=== PATIENT | female | born 1965 | race Caucasian/White ===

== ENCOUNTER 2017-04-11 15:55 | Observation (INO) ==
[2017-04-11] MEDS ORDERED: *HR* FentaNYL (PF) 100 MCG/2 ML VIAL IVP ONE (18:28)
[2017-04-11] MEDS ORDERED: *HR* HYDROmorphone (PF) 1 MG/ML SYRINGE IVP ONE (18:28)
[2017-04-11] MEDS ORDERED: 0.9 % Sodium Chloride 1,000 ML IVC ONE (18:28)
--- NOTE | 2017-04-11 18:28 | Emergency Department Note ---
Disposition Clinical Impression: Abdominal pain Qualifiers: Abdominal location: periumbilical Qualified Code(s): R10.33 - Periumbilical pain Umbilical hernia Qualifiers: Obstruction and gangrene presence: without obstruction or gangrene Qualified Code(s): K42.9 - Umbilical hernia without obstruction or gangrene Disposition: Still a Patient Condition: Good Abdominal Pain HPI - General Chief Complaint: ED Abdominal Pain Stated Complaint: Hernia Time Seen by Provider: 04/11/17 18:12 Source: patient Mode of arrival: ambulatory Limitations: no limitations Nursing Notes Reviewed: Yes Vital Signs Reviewed: Yes - History of Present Illness HPI Narrative: 51-year-old female presents with abdominal pain. She has a known umbilical hernia that typically is reducible. She states about 6 days ago the hernia popped out she was unable to present back in. Gradually over these past few days it has grown in size. She continues to pass flatus and had a normal bowel movement earlier at 1130. She denies any nausea vomiting. No fever or recent illness. No other complaints. History of cholecystectomy and hysterectomy. Denies any urinary complaints. On my valuation she has a umbilical hernia roughly 3 cm in size. It is tender to the touch. There is bowel sounds auscultated. I attempted to reduce with light pressure but due to the pain she would Valsalva. Will attempt again and if not possible IV sedation. She will be signed out to nighttime physicians Dr. Smalls and Dr. Nagel for further evaluation and management. Fentanyl for pain and IV fluids. Basic labs ordered. Pt Subjective Complaint: abdominal pain Pain Scale: 3 - Related Data Home Medications Medication Instructions Recorded Confirmed Levothyroxine [Synthroid] 150 mcg PO QAM 04/06/16 04/11/17 Loratadine [Claritin] 10 mg PO DAILY PRN 04/06/16 04/11/17 Cholecalciferol (Vitamin D3) 5,000 unit PO DAILY 04/11/17 04/11/17 [Vitamin D3] Cyanocobalamin (Vitamin B-12) 1,000 mcg SL DAILY 04/11/17 04/11/17 [Vitamin B-12] Allergies Allergy/AdvReac Type Severity Reaction Status Date / Time iodine Allergy Anaphylaxis Verified 04/06/16 15:46 All systems ED: reviewed and negative except as stated. Review of Systems: As Per HPI Constitutional: Denies: fever, chills ENT ED: Denies: throat pain, congestion Cardiovascular: Denies: chest pain Respiratory: Denies: cough, dyspnea Gastrointestinal: Reports: abdominal pain. Denies: nausea, vomiting, diarrhea Genitourinary: Denies: urgency, dysuria Musculoskeletal: Denies: back pain, neck pain Integumentary: Denies: rash, abrasion Neurological: Denies: headache Abdominal Pain PMH - Past Medical History Medical history: Reports: DVT, other Female Surgical History: Reports: cholecystectomy Psychiatric history: Reports: no psych history - Social History Smoking status: Current every day smoker Alcohol use: Reports: rarely Drug use: Reports: none Physical Exam - General Limitations: no limitations General appearance: alert, in no apparent distress - Head Head exam: atraumatic, normocephalic, normal inspection - Eye Eye exam: Present: normal appearance, PERRL, EOMI - ENT ENT exam: normal exam, normal oropharynx, mucous membranes moist - Neck Neck exam: Present: normal inspection, full ROM, trachea midline - Chest Chest inspection: Present: normal inspection, symmetric chest wall rise - Respiratory Respiratory exam: Present: normal lung sounds bilaterally - Cardiovascular Cardiovascular exam: Present: regular rate, normal rhythm, normal heart sounds - Abdominal Exam Abdominal exam: Present: soft, tenderness, hernia (umbilical, cannot reduce). Absent: Non-Tender, distention, guarding, rebound, rigidity, Rovsing's sign, tenderness at McBurney's Point - Neurological Exam Neurological exam: Present: alert, oriented X3 - Skin Skin exam: Present: warm, dry, intact, normal color. Absent: rash, cyanosis, diaphoresis Course Vital Signs Temperature 98.3 F 04/11/17 16:07 Pulse Rate 84 04/11/17 16:07 Respiratory Rate 16 04/11/17 16:07 Blood Pressure 130/80 04/11/17 16:07 O2 Sat by Pulse Oximetry 97 04/11/17 16:07 Temperature 97.0 F L 04/12/17 03:32 Pulse Rate 62 04/12/17 03:32 Respiratory Rate 16 04/12/17 03:32 Blood Pressure 125/80 04/12/17 03:32 O2 Sat by Pulse Oximetry 94 04/12/17 03:32 Oxygen Delivery Oxygen Delivery Room Air Abdominal Pain - MDM Narrative Medical decision making narrative: Patient was discussed with my attending physician who agrees with ED management and final disposition. They independently evaluated the patient. Please refer to their attestation to this encounter for additional information. This note was generated by [employer] voice recognition software and as a result grammatical or spelling errors may occur using this program. - Medical Records Medical records reviewed: Yes I reviewed the patient's medical records. - Lab Data Lab results reviewed: Yes I reviewed the patient's lab results. Result diagrams: 04/11/17 18:44 04/11/17 18:44 Lab Results 04/11/17 04/11/17 04/11/17 Range/Units 18:44 18:44 18:44 WBC 6.8 (4.3-11.1) K/mcL RBC 4.23 (3.82-4.97) M/mcL Hgb 12.7 (11.5-15.4) g/dL Hct 38.8 (35.3-44.9) % MCV 91.7 (83.0-100.0) fL MCH 30.0 (28.0-33.3) pg MCHC 32.7 (31.6-35.5) g/dL RDW 13.5 (11.5-14.5) % Plt Count 200 (140-400) K/mcL MPV 10.8 (9.4-12.4) fL Immature Gran % 0.3 (0-4) % Seg Neutrophils % 55.6 % Lymphocytes % 30.4 % Monocytes % 7.2 % Eosinophils % 5.2 % Basophils % 1.3 % Neutrophils # 3.8 (1.6-8.9) K/mcL Lymphocytes # 2.1 (0.6-4.6) K/mcL Monocytes # 0.5 (0.0-1.3) K/mcL Eosinophils # 0.4 (0.0-0.6) K/mcL Basophils # 0.1 (0.0-0.2) K/mcL Immature Plt Fraction 5.9 (1.1-6.1) % Sodium 139 (136-145) mEq/L Potassium 3.6 (3.5-5.1) mEq/L Chloride 109 H (98-107) mEq/L Carbon Dioxide 31 H (23-29) mEq/L BUN 6 (6-20) mg/dL Creatinine 0.81 (0.60-1.20) mg/dL Est GFR ( Amer) > 60 (> 60) Est GFR (Non-Af Amer) > 60 (> 60) BUN/Creatinine Ratio 7 (6-26) Glucose 93 (70-105) mg/dL Calculated Osmolality 285 (280-300) Lactic Acid 1.0 (0.5-2.2) mmol/L Calcium 9.1 (8.6-10.3) mg/dL S.B.A.R. - S.B.A.R. Situation: Demographics, MOA Background: Presenting Complaint, Relevant PMH, Meds, & Allergies Assessment: Vital Signs, Course and respsone to treatment, Exam Concerns, Patient/Family Expectation, Pertinant Lab Results, Outstanding Labs Recommendation: Barrier(s) to disposition, Recommendation based on pending studies, treatments, or consults S.B.A.R. Report Given to: Dr. Smalls and Dr. Robe Freedman Repor Time: 19:09 Attestation Statement - Attestation Attestation: I, Romie Cottrell DO, examined this patient [id number] and my medical decision-making was reviewed with Franck Pineda DO , Resident Physician. I agree with the documented findings, disposition and treatment plan as described except to the extent set forth below. Please see my progress notes for details. Patient presents to emergency room with abdominal pain. She has a known periumbilical hernia. She is very easily reduces it without any complication. Patient has not been able to reduce it last for 5 days. She denies any changes in her bowel habit. She just has pain at the umbilicus. Patient just incredibly in the bed. Nail reduction was not able to be completed with our narcotic pain medication at this time. Patient is otherwise stable. Screening labs and IV access fluids and pain medication to be provided at this time. Patient will be signed out to the nighttime physician. See detailed documentation of physical exam, medical intervention, medical decision making, disposition and sign out in the resident physicians
[2017-04-11 18:51] LABS: Basophils # 0.1 K/mcL (0.0-0.2); Basophils % 1.3 %; Eosinophils # 0.4 K/mcL (0.0-0.6); Eosinophils % 5.2 %; Hematocrit 38.8 % (35.3-44.9); Hemoglobin 12.7 g/dL (11.5-15.4); Immature Granulocytes % 0.3 % (0-4); Immature Platelets 5.9 % (1.1-6.1); Lymphocytes # 2.1 K/mcL (0.6-4.6); Lymphocytes % 30.4 %; Mean Corpuscular HGB Conc 32.7 g/dL (31.6-35.5); Mean Corpuscular Volume 91.7 fL (83.0-100.0); Mean Platelet Volume 10.8 fL (9.4-12.4); Monocytes # 0.5 K/mcL (0.0-1.3); Monocytes % 7.2 %; Neutrophils # 3.8 K/mcL (1.6-8.9); Platelet Count 200 K/mcL (140-400); Red Blood Count 4.23 M/mcL (3.82-4.97); Red Cell Distribution Width 13.5 % (11.5-14.5); Segmented Neutrophils % 55.6 %
[2017-04-11 19:07] LABS: BUN/Creatinine Ratio 7 (6-26); Blood Urea Nitrogen 6 mg/dL (6-20); Calcium 9.1 mg/dL (8.6-10.3); Carbon Dioxide 31 mEq/L (23-29); Chloride 109 mEq/L (98-107); Glucose 93 mg/dL (70-105); Osmolality,Calculated 285 (280-300); Potassium 3.6 mEq/L (3.5-5.1); Sodium 139 mEq/L (136-145); eGFR For African Americans > 60 (> 60); eGFR For Non-African Americans > 60 (> 60)
--- NOTE | 2017-04-11 21:14 | General Surg History&Physical ---
Date of Encounter: 04/11/17 Time of Encounter: 21:03 Assessment and Plan (1) Umbilical hernia Current Visit: Yes Status: Acute 51F with incarcerated, but non strangulated umbilical hernia, non obstructive symptoms. 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 All questions were answered. Qualifiers: Obstruction and gangrene presence: without obstruction or gangrene Qualified Code(s): K42.9 - Umbilical hernia without obstruction or gangrene (2) Hypothyroidism Current Visit: No Status: Acute restart home meds; will plan for thyroid US to evaluate for nodules based upon physical exam The assessment and plan as outlined above was discussed with the patient and/or family members who expressed understanding and agreement. All questions were answered. Qualifiers: Hypothyroidism type: acquired Qualified Code(s): E03.9 - Hypothyroidism, unspecified History of Present Illness Chief complaint: abdominal pain, hernia HPI: Ms. Bear is a 51 year old female with PMH significant for DVTs, OA with a long standing umbilical hernia of about three presents with fullness which she equates to her hernia. It is usually reducible, but she was unable to do so over the past 7 days. Due to the amount of pain she presented to the ED for further evaluation. No reports of obstructive symptoms, no fevers, chills, chest pain nor shortness of breath. Of note, the staff in the ED did attempt reduction, but was unable to do so. Past Med Surg Social Fam HX - Past Medical History Medical history: DVT, other Psychiatric history: no psych history - Past Surgical History Surgical History: cholecystectomy, other (tubal ligation) - Social History Smoking Status: Current every day smoker Smokeless Tobacco Status: No Alcohol use: rarely Drug use: none - Additional Family History Additional family history: non contributory Medications and Allergies Levothyroxine [Synthroid] 150 mcg PO QAM 04/06/16 [History] Loratadine [Claritin] 10 mg PO DAILY PRN 04/06/16 [History] Cholecalciferol (Vitamin D3) [Vitamin D3] 5,000 unit PO DAILY 04/11/17 [History] Cyanocobalamin (Vitamin B-12) [Vitamin B-12] 1,000 mcg SL DAILY 04/11/17 [ History] 3 Allergy/AdvReac Type Severity Reaction Status Date / Time iodine Allergy Anaphylaxis Verified 04/06/16 15:46 Review of Systems All systems PM: A 10-system review of systems was performed and is negative for pertinent findings except as documented above in the HPI. General Surgery Exam Initial Vital Signs Temp Pulse Resp BP Pulse Ox 98.3 F 84 16 130/80 97 04/11/17 16:07 04/11/17 16:07 04/11/17 16:07 04/11/17 16:07 04/11/17 16:07 - General physical appearance well developed, well nourished, no distress - Eyes normal ocular movement - ENT normocephalic - Neck other (possible thyroid nodule on R) - Respiratory normal expansion, normal respiratory effort - Cardiovascular Cardiovascular exam: Present: RRR - Abdomen Abdomen general surgery: Present: soft, tender (along umbilical incision) Hernia: Present: reducible, umbilical - Integumentary Integumentary general surgery: Present: warm and dry - Neurologic Present: CN 2-12 grossly intact - Musculoskeletal Present: other (FROM in UE/LE bilaterally) - Psychiatric Psychiatric general surgery: Present: A&Ox3 Results - Labs 04/11/17 18:44 04/11/17 18:44 Abnormal lab results Chloride 109 mEq/L (98-107) H 04/11/17 18:44 Carbon Dioxide 31 mEq/L (23-29) H 04/11/17 18:44 All other labs normal.
--- NOTE | 2017-04-12 00:28 | Anesthesia Evaluation PreOp ---
Date of Encounter: 04/12/17 Time of Encounter: 00:26 - Past History Planned Operation: Laparoscopic Umbilical Hernia Repair Cardiac History: Denies any Significant Hx Pulmonary History: Smoker (20+ years), Snore LEAD TELLER History: Denies Any Significant HX Other Medical History: Thyroid, Other (H/O DVT's) Anesthesia History: Past Anesthesia, Problems (PONV) Alcohol Use: rarely Drug use: none Medications and Allergies Levothyroxine [Synthroid] 150 mcg PO QAM 04/06/16 [History] Loratadine [Claritin] 10 mg PO DAILY PRN 04/06/16 [History] Cholecalciferol (Vitamin D3) [Vitamin D3] 5,000 unit PO DAILY 04/11/17 [History] Cyanocobalamin (Vitamin B-12) [Vitamin B-12] 1,000 mcg SL DAILY 04/11/17 [ History] 3 Allergy/AdvReac Type Severity Reaction Status Date / Time iodine Allergy Anaphylaxis Verified 04/06/16 15:46 - Meds/Allergy Pre-op Review Medications Reviewed: Yes Allergies Reviewed: Yes Beta Blockers on Current Med List: No Anesthesia Results - Labs 04/11/17 18:44 04/11/17 18:44 Anesthesia Exam Vital Signs/O2 Sat/Glucose, Most Recent Temp Pulse Resp BP Pulse Ox 98.7 F 71 16 124/82 98 04/11/17 22:05 04/11/17 22:05 04/11/17 22:05 04/11/17 22:05 04/11/17 22:05 Blood Glucose* 98 Height: 5'4''/1.63 m Weight: 217 lbs/98.6 kg NPO (# of Hours): 8 Pain Scale: 0 Pain Scale Used: Numeric (1 - 10) - HEENT Pupil (Motor): EOMI Mallampati: II Teeth: Normal (broken left upper molar) Oral Opening: Greater than 3 - LEAD TELLER LOC: Oriented LEAD TELLER Motor: Normal RUE, Normal LUE, Normal RLE, Normal LLE, Normal Face LEAD TELLER Sensory: Normal: RUE, LUE, RLE, LLE, Face - Cardiac Rhythm: Regular Murmur: None - Pulmonary Breath Sounds: bilateral Clear Respiratory Effort: Symmetrical Anesthesia Assess/Plan ASA Score: 2 Modified Dolly Scale for Level of Consciousness: Cooperative, oriented, and tranquil Anesthetic Plan: General Monitoring Plan: Standard Monitors Recovery Plan: PACU
[2017-04-12] MEDS ORDERED: 0.9 % Sodium Chloride 1,000 ML IVC ONE ×2 (00:30→04:05)
[2017-04-12] MEDS ORDERED: Ondansetron 4 MG/2 ML VIAL IVP PRN ×2 (00:30→04:05)
[2017-04-12] MEDS ORDERED: *HR* HYDROmorphone (PF) 1 MG/ML SYRINGE IVP PRN ×2 (00:30→00:49)
[2017-04-12] MEDS ORDERED: *HR* OxyCODONE/APAP 7.5/325 TABLET PO PRN ×2 (00:32→04:05)
[2017-04-12] MEDS ORDERED: Albuterol 2.5 MG/3 ML NEBULIZER ONE (00:35)
[2017-04-12] MEDS ORDERED: *HR* FentaNYL (PF) 100 MCG/2 ML VIAL ONE (00:44)
[2017-04-12] MEDS ORDERED: *HR* Midazolam HCl 2 MG/2 ML VIAL ONE (00:45)
[2017-04-12] MEDS ORDERED: Lidocaine -MPF 2% 2 ML VIAL ONE (00:45)
[2017-04-12] MEDS ORDERED: *HR* Propofol 200 MG/20 ML VIAL IVP ONE (00:45)
[2017-04-12] MEDS ORDERED: *HR* Rocuronium Bromide 50 MG/5 ML VIAL ONE (00:45)
[2017-04-12] MEDS ORDERED: D5% in 0.45% NACL w KCl 20 MEQ/1,000 ML MLS IVC SCH ×2 (00:45→04:05)
[2017-04-12] MEDS ORDERED: *HR* Succinylcholine 200 MG/10 ML VIAL IVP ONE (00:45)
[2017-04-12] MEDS ORDERED: Scopolamine Patch 1.5 MG PATCH.TD72 TD ONE (00:51)
[2017-04-12] MEDS ORDERED: Scopolamine Patch 1.5 MG PATCH.TD72 ONE (01:01)
[2017-04-12] MEDS ORDERED: Dexamethasone 4 MG/ML VIAL ONE (01:27)
[2017-04-12] MEDS ORDERED: Ondansetron 4 MG/2 ML VIAL ONE (01:27)
[2017-04-12] MEDS ORDERED: *HR* Morphine 10 MG/ML VIAL ONE (02:16)
--- NOTE | 2017-04-12 02:30 | Operative Note ---
Date of procedure: 04/12/17 Pre-op diagnosis: incarcerated umbilical hernia Post-op diagnosis: same Procedure: laparoscopic umbilical hernia repair Implants: [id number] mesh Complications: none Anesthesia: GETA Local Anesthetics: 0.5% Sensorcaine HCL SubQ (cc) Surgeon: Jake Jacob Was there an media center assistant present: Yes Twine Reeling Machine Operator: Anh Maloney Estimated blood loss (cc): 10 Specimen: none Condition: stable Disposition: PACU Procedure in Detail: Patient was brought into the operating room suite. Mechanical DVT prophylaxis was placed. The patient underwent smooth induction of anesthesia. Preoperative antibiotics were given. The patient was prepped and draped in the usual fashion in the supine position. A time out was held identifying the correct patient, pathology, physician, and procedure. A 10mm incision was made in the LUQ. Using the visiport we entered into the abdomen. A 5mm port was placed in the Left midabdomen. Using a blunt grasper I was able to identify the umbilical hernia and reduce the contents. It was all intraabdominal fat and some fluid. No evidence of non viable or compromised /ischemic/infarcted tissue. The size of the hernia was approximately 3/25cm in diameter. I inserted a 3rd port in the LLQ to assist in removing the contents of the hernia in its entirety. I then inserted the circular mesh with a vicryl suture in the center of it. Using the karely-stephens closure device I was able to retrieve the mesh by grasping the vicryl suture and bringing it through the abdominal wall, thereby bring the mesh in close proximity to the intraabdominal wall. I was able to see that I did have good hernia coverage of at least 3cm on all sides. I then used the absorbable tacking instrument to insert tacks into the mesh edges approximately 1cm apart. I was content with the mesh placement. I then used the karely stephens device to close the 10mm port site in a figure of 8 fashion using a vicryl suture. Of note, prior to this, I did retrieve the contents of the hernia in the endocatch bag. I then concluded the procedure and ended the laparoscopic portion. I closed all skin incision with interrupted 4-0 vicryl sutures and sealed them with dermabond. The patient tolerated the procedure and was escorted to pacu in stable condition.
--- NOTE | 2017-04-12 03:21 | Anesthesia Evaluation Post Op ---
Date of Encounter: 04/12/17 Time of Encounter: 03:05 - Vital Signs Vital Signs: Vital Signs/O2 Sat, Most Current Temp Pulse Resp BP Pulse Ox 97.0 F L 48 16 110/73 93 04/12/17 03:04 04/12/17 03:14 04/12/17 03:14 04/12/17 03:14 04/12/17 03:14 - Lungs Lungs: Clear Ascult./Percussion - Airway Airway: Non-obstructed - Cardiovascular Regular Rate - Mental Status Mental Status: Asleep with brisk response to light stimulation - Pain Pain Scale: 5 Pain Scale used: Numeric (1 - 10) - Nausea Vomiting Nausea Vomiting: Not Present - Hydration Hydration: NPO, Has not voided - Discharge PostOp Status: Transfer Patient to floor
[2017-04-12] MEDS ORDERED: Loratadine 10 MG TABLET PO PRN (04:05)
[2017-04-12] MEDS: *HR* HYDROmorphone (PF) 1 MG/ML SYRINGE IVP PRN ×2 (04:11→09:03)
--- NOTE | 2017-04-12 05:09 | Emergency Department Note ---
START Narrative - START START: I examined this patient and my medical decision-making was reviewed with the Resident Physician. I agree with the documented findings, disposition and treatment plan as described except to the extent set forth below. I received this patient in sign out. I was unable to reduce the abdominal hernia on examination. Ultimately I contacted general surgery. Lactate was normal. The patient was taken to the operating room with concern for incarcerated hernia. Stable at time of transfer.
[2017-04-12] MEDS ORDERED: *HR* Enoxaparin 40 MG/0.4 ML SYRINGE SQ SCH ×2 (06:00)
[2017-04-12 07:54] LABS: BUN/Creatinine Ratio 7 (6-26); Blood Urea Nitrogen 5 mg/dL (6-20); Calcium 8.4 mg/dL (8.6-10.3); Carbon Dioxide 24 mEq/L (23-29); Chloride 112 mEq/L (98-107); Glucose 152 mg/dL (70-105); Magnesium 1.4 mg/dL (1.6-2.6); Osmolality,Calculated 286 (280-300); Phosphorous 2.7 mg/dL (2.7-4.5); Potassium 3.8 mEq/L (3.5-5.1); Sodium 138 mEq/L (136-145); eGFR For African Americans > 60 (> 60); eGFR For Non-African Americans > 60 (> 60)
[2017-04-12 08:36] LABS: Thyroid Stimulating Hormone 101.48 mcIU/mL (0.340-5.600)
[2017-04-12 10:18] VITALS: BP 96/64
[2017-04-12] MEDS ORDERED: Potassium Phosphate 44 MEQ in 0.9 % Sodium Chloride 250 ML IVPB ONE (11:32)
--- NOTE | 2017-04-12 12:54 | General Surgery Progress Note ---
Date of Encounter: 04/12/17 Time of Encounter: 12:52 - Assessment and Plan (1) Umbilical hernia Current Visit: Yes Status: Acute 51F POD #1 s/p lap umbilical hernia repair; recovering as expected - diet as tolerated - cont with current pain regimen - activity as tolerated - replete electrolytes - okay for discharge today if patient able; otherwise plan for d/c in AM Qualifiers: Obstruction and gangrene presence: without obstruction or gangrene Qualified Code(s): K42.9 - Umbilical hernia without obstruction or gangrene (2) Hypothyroidism Current Visit: No Status: Acute labs consistent with hypothyroidism; small nodule on R thyroid - will address with patient in at follow up appointment Qualifiers: Hypothyroidism type: acquired Qualified Code(s): E03.9 - Hypothyroidism, unspecified Subjective Patient reports: no new complaints, feels better, still having pain, tolerating liquids well, afebrile Objective Vital Signs - Last 8 Hours Temp Pulse Resp BP Pulse Ox 04/12/17 10:17 98.6 F 59 15 96/64 95 04/12/17 07:25 97.9 F 53 16 99/72 96 04/12/17 06:35 97.4 F L 43 16 115/72 94 04/12/17 05:35 97.6 F 67 15 126/79 93 04/12/17 05:05 97.6 F 67 15 126/79 93 Intake and Output 04/11/17 04/12/17 04/12/17 23:59 07:59 15:59 Intake Total 0 / 1000 1275 / 1275 308 / 308 Output Total 0 / 0 10 / 10 200 / 200 Balance 0 / 1000 1265 / 1265 108 / 108 Intake: IV Fluids 1215 / 1215 308 / 308 0.9 % Sodium Chloride 1,000 ML 1000 / 1000 @ 3750 mls/hr IVC .Q16M ONE Rx# :[id number] KCl 20mEq IN D5%-0.45 NACL 20 215 / 215 308 / 308 meq In 1,000 ml @ 100 mls/hr IVC .Q10H [facility] Rx#:[id number] Oral 0 / 0 60 / 60 0 / 0 Output: Urine 0 / 0 0 / 0 200 / 200 Estimated Blood Loss Other: Weight 98.611 kg 98.611 kg Blood Glucose* 98 Patient Weight 04/12/17 23:59 Weight 98.611 kg - General physical appearance well developed, well nourished, no distress - ENT normocephalic - Respiratory normal expansion, normal respiratory effort - Cardiovascular Cardiovascular exam: Present: RRR - Abdomen Abdomen: Present: soft, tender (appropriately tender; ) - Incision Incision: Present: clean and dry, intact - Neurologic CN 2-12 grossly intact - Psychiatric oriented to time, oriented to person, oriented to place - Labs 04/11/17 18:44 04/12/17 06:09 Diabetes panel 04/12/17 Range/Units 06:09 Sodium 138 (136-145) mEq/L Potassium 3.8 (3.5-5.1) mEq/L Chloride 112 H (98-107) mEq/L Carbon Dioxide 24 (23-29) mEq/L BUN 5 L (6-20) mg/dL Creatinine 0.72 (0.60-1.20) mg/dL Glucose 152 H (70-105) mg/dL Calcium 8.4 L (8.6-10.3) mg/dL Thyroid panel 04/12/17 Range/Units 06:09 TSH 101.480 H (0.340-5.600) mcIU/mL Calcium panel 04/12/17 Range/Units 06:09 Calcium 8.4 L (8.6-10.3) mg/dL Phosphorus 2.7 (2.7-4.5) mg/dL Pituitary panel 04/12/17 04/12/17 Range/Units 06:09 06:09 Sodium 138 (136-145) mEq/L Potassium 3.8 (3.5-5.1) mEq/L Chloride 112 H (98-107) mEq/L Carbon Dioxide 24 (23-29) mEq/L BUN 5 L (6-20) mg/dL Creatinine 0.72 (0.60-1.20) mg/dL Glucose 152 H (70-105) mg/dL Calcium 8.4 L (8.6-10.3) mg/dL TSH 101.480 H (0.340-5.600) mcIU/mL Adrenal panel 04/12/17 Range/Units 06:09 Sodium 138 (136-145) mEq/L Potassium 3.8 (3.5-5.1) mEq/L Chloride 112 H (98-107) mEq/L Carbon Dioxide 24 (23-29) mEq/L BUN 5 L (6-20) mg/dL Creatinine 0.72 (0.60-1.20) mg/dL Glucose 152 H (70-105) mg/dL Calcium 8.4 L (8.6-10.3) mg/dL - VTE Documentation of Mechanical Device: Intermittent pneumatic compression device Consult Discharge Plan - Plan Referrals: Amauri Burnham MD [Primary Care Provider] -
--- NOTE | 2017-04-12 13:33 | Discharge Summary ---
<Altagracia Talavera - Last Filed: 04/12/17 13:27> Date of Encounter: 04/12/17 Time of Encounter: 13:30 - Discharge Diagnosis (1) Umbilical hernia Priority: Primary Status: Resolved Qualifiers: Obstruction and gangrene presence: without obstruction or gangrene Qualified Code(s): K42.9 - Umbilical hernia without obstruction or gangrene (2) Hypothyroidism Priority: Secondary Status: Acute Qualifiers: Hypothyroidism type: acquired Qualified Code(s): E03.9 - Hypothyroidism, unspecified - Discharge Medications Prescriptions: OxyCODONE/APAP 7.5/325 [Percocet 7.5/325 MG] 1 each PO Q6HR PRN #28 tablet PRN Reason: Pain Ibuprofen [Motrin] 600 mg PO Q8HR #50 tab Docusate [Colace] 100 mg PO BID #30 capsule Home Medications: Levothyroxine [Synthroid] 150 mcg PO QAM 04/06/16 [History] Loratadine [Claritin] 10 mg PO DAILY PRN 04/06/16 [History] Cholecalciferol (Vitamin D3) [Vitamin D3] 5,000 unit PO DAILY 04/11/17 [History] Cyanocobalamin (Vitamin B-12) [Vitamin B-12] 1,000 mcg SL DAILY 04/11/17 [ History] Docusate [Colace] 100 mg PO BID #30 capsule 04/12/17 [Rx] Ibuprofen [Motrin] 600 mg PO Q8HR #50 tab 04/12/17 [Rx] OxyCODONE/APAP 7.5/325 [Percocet 7.5/325 MG] 1 each PO Q6HR PRN #28 tablet 04/12 [Rx] Allergies/Adverse Reactions: 3 Allergy/AdvReac Type Severity Reaction Status Date / Time iodine Allergy Anaphylaxis Verified 04/06/16 15:46 General Surgery Exam Initial Vital Signs Temp Pulse Resp BP Pulse Ox 98.3 F 84 16 130/80 97 04/11/17 16:07 04/11/17 16:07 04/11/17 16:07 04/11/17 16:07 04/11/17 16:07 Date of admission: 04/11/17 20:36 Primary care physician: Amauri Burnham MD Discharging clinician: Jake Talavera) Anticipated date of discharge: 04/12/17 - Patient Status Disposition: Home, Self-Care Condition: Good Overall status at discharge: patient is progressing back to baseline - Discharge Instructions Follow Up With: Amauri Burnham MD [Primary Care Provider] - 04/21/17 2:00 pm (2 week hospital follow-up) Jake Jacob MD [Non-Partnered Physician] - 04/26/17 2:05 pm (surgery follow- up; thyroid nodule) Additional Instructions: #1 may shower, no tub bath for 2 weeks #2 wash incisions with soap and water and pat dry daily #3 no lifting, pushing, pulling more than 15 pounds for the next 6 weeks #4 no driving until off narcotics for 24 hours and able to safely react in the car #5 may climb stairs - Diet and Activity Activity: other (See additional instructions above) Diet: advance to your usual diet - Hospital Course Hospital course: Ms. Bear is a 51 year old female who presented to the emergency department with complaints of abdominal pain. She was found to have an incarcerated umbilical hernia. She was admitted to the hospital and initiated on supportive treatment. She was taken to the operating room for a repair of her incarcerated umbilical hernia with mesh placement. On postoperative day #1, she states that her preoperative pain has resolved. She is experiencing postsurgical pain but states that this is controlled with oral pain medication. She is tolerating a diet without nausea or vomiting. Her vital signs are stable and she is afebrile. She is voiding and ambulating without difficulty. We will begin discharge planning to home and plan for outpatient follow-up in the next 10-14 days. The patient's hypothyroidism and thyroid nodule also be addressed at her follow-up appointment with Dr. Nascimento. - Time Spent with Patient Total time spent providing and/or coordinating discharge services: Less than 30 minutes Labs on day of discharge: Labs from last 24 hours 04/12/17 04/12/17 04/11/17 06:09 06:09 22:04 Sodium 138 Potassium 3.8 Chloride 112 H Carbon Dioxide 24 BUN 5 L Creatinine 0.72 Est GFR ( Amer) > 60 Est GFR (Non-Af Amer) > 60 BUN/Creatinine Ratio 7 Glucose 152 H POC Glucose 98 H Calculated Osmolality 286 Calcium 8.4 L Phosphorus 2.7 Magnesium 1.4 L TSH 101.480 H Free T4 0.28 L - Impressions ITS Impressions Abdomen/Pelvis CT 04/11/17 23:30 IMPRESSION: Umbilical hernia is present containing only fat and fluid. D/ / Elliot Madrid MD / Elliot Madrid MD Interpreting Provider: Elliot Madrid MD Thyroid Ultrasound 04/12/17 10:00 IMPRESSION: 1. Diffusely heterogeneous thyroid gland. 2. A 6 mm hypoechoic nodule in the inferior right thyroid lobe. D/ / 04/12/2017 09:07:49 Mary Burk MD / [email or web address] Interpreting Provider: Mary Burk MD - Attending Attestation For this encounter, I have reviewed the [employer] or PA documentation, treatment plan, and medical decision making; and I have had face to face time with this patient. <Jake Jacob - Last Filed: 04/13/17 01:58> Date of Encounter: 04/13/17 - Discharge Diagnosis (1) Umbilical hernia Status: Resolved Qualifiers: Obstruction and gangrene presence: without obstruction or gangrene Qualified Code(s): K42.9 - Umbilical hernia without obstruction or gangrene (2) Hypothyroidism Status: Acute Qualifiers: Hypothyroidism type: acquired Qualified Code(s): E03.9 - Hypothyroidism, unspecified General Surgery Exam Initial Vital Signs Temp Pulse Resp BP Pulse Ox 98.3 F 84 16 130/80 97 04/11/17 16:07 04/11/17 16:07 04/11/17 16:07 04/11/17 16:07 04/11/17 16:07 Date of admission: 04/11/17 20:36 Primary care physician: Amauri Burnham MD - Patient Status Functional capacity at discharge: independent ambulation - Hospital Course Hospital course: Ms. Bear is a 51 year old female - Time Spent with Patient Total time spent providing and/or coordinating discharge services: Labs on day of discharge: Labs from last 24 hours 04/12/17 04/12/17 06:09 06:09 Sodium 138 Potassium 3.8 Chloride 112 H Carbon Dioxide 24 BUN 5 L Creatinine 0.72 Est GFR ( Amer) > 60 Est GFR (Non-Af Amer) > 60 BUN/Creatinine Ratio 7 Glucose 152 H Calculated Osmolality 286 Calcium 8.4 L Phosphorus 2.7 Magnesium 1.4 L TSH 101.480 H Free T4 0.28 L - Impressions ITS Impressions Abdomen/Pelvis CT 04/11/17 23:30 IMPRESSION: Umbilical hernia is present containing only fat and fluid. D/ / Elliot Madrid MD / Elliot Madrid MD Interpreting Provider: Elliot Madrid MD Thyroid Ultrasound 04/12/17 10:00 IMPRESSION: 1. Diffusely heterogeneous thyroid gland. 2. A 6 mm hypoechoic nodule in the inferior right thyroid lobe. D/ / 04/12/2017 09:07:49 Mary Burk MD / [email or web address] Interpreting Provider: Mary Burk MD - Attending Attestation I have personally seen and examined the patient. I have reviewed pertinent labs , imaging, progress notes, including this one. I agree with the above assessment and plan and wish to include the following... POD #1 s/p lap umbilical hernia repair; pain controlled; tolerating diet; ambulating and voiding; okay for discharge with follow up in 1-2 weeks
== END 2017-04-12 14:53 | disposition home or self-care (01) ==
LOC: 3ANU 15:55 → EMEROO 15:55 → 3ANU 21:22
PROVIDERS: ADMIT Surgery; ATTEND Surgery